=== PATIENT | female | born 1960 | race Caucasian/White ===

== ENCOUNTER 2018-12-08 16:17 | Emergency (ER) | payer MEDICARE, OTHER ==
[2018-12-08 17:11] VITALS: BP 134/74
--- NOTE | 2018-12-08 17:43 | UC ---
General HPI - HPI Summary HPI Summary: PAIN AND SWELLING TO R UPPER OUTER EYE LID X 6 DAYS. WAS ITCHING AND CRUSTY THIS AM. APPLIED VASOLINE WHICH HELPED THE ITCHING. NO CONTACT USE. - History of Current Complaint Chief Complaint: UCEye Stated Complaint: RIGHT EYE CONCERN Time Seen by Provider: 12/08/18 17:20 Hx Obtained From: Patient Onset/Duration: Gradual Onset Timing: Constant Pain Intensity: 5 Associated Signs & Symptoms: Negative: Fever, Headache - Allergy/Home Medications Allergies/Adverse Reactions: Allergies Allergy/AdvReac Type Severity Reaction Status Date / Time amitriptyline Allergy uncontrollable Verified 12/08/18 17:27 legs bee venom protein (honey bee) Allergy Swelling Verified 12/08/18 17:27 carbidopa Allergy See Comment Verified 12/08/18 17:27 epinephrine Allergy Vomiting Verified 12/08/18 17:27 ketorolac Allergy See Comment Verified 12/08/18 17:27 milnacipran [From Savella] Allergy Vomiting Verified 12/08/18 17:27 pregabalin [From Lyrica] Allergy syncope Verified 12/08/18 17:27 Sulfa (Sulfonamide Allergy Edema Verified 12/08/18 17:27 Antibiotics) Tetracyclines Allergy Swelling Verified 12/08/18 17:27 Of Face,Lips,& Throat topiramate [From Topamax] Allergy Anxiety Verified 12/08/18 17:27 tramadol Allergy uncontrollable Verified 12/08/18 17:27 legs trazodone AdvReac See Comment Verified 12/08/18 17:27 prestiq Allergy Abdominal Uncoded 12/08/18 17:27 Pain ANTIHISTAMINE AdvReac See Comment Uncoded 12/08/18 17:27 Home Medications: Home Medications Esomeprazole Magnesium [Heartburn Treatment] 20 mg PO DAILY 12/08/18 [History Confirmed 12/08/18] Methadone TAB* [Dolophine TAB*] 10 mg PO Q6H 12/08/18 [History Confirmed ] PMH/Surg Hx/FS Hx/Imm Hx - Additional Past Medical History Additional PMH: CHRONIC PAIN, ARTHRITIS Endocrine History: Thyroid Disease GI/ History: Gastroesophageal Reflux Psychological History: Anxiety - Surgical History Surgical History: Yes Surgery Procedure, Year, and Place: CERVICAL SURGERIES X4. TONSILS. DEVIATED SEPTUM. CARPAL TUNNEL BILAT. TRIGGER FINGER RELEASE X2 LEFT; RIGHT ALL FINGERS - Family History Known Family History: Positive: Non-Contributory - Social History Alcohol Use: Daily Alcohol Amount: 1/DAY Substance Use Type: None Smoking Status (MU): Current Every Day Smoker When Did the Patient Quit Smoking/Using Tobacco: 8-10/DAY Review of Systems All Other Systems Reviewed And Are Negative: No Constitutional: Positive: Negative Skin: Positive: Negative Eyes: Negative: Blurred Vision, Diplopia, Photophobia ENT: Positive: Negative Respiratory: Positive: Negative Cardiovascular: Positive: Negative Gastrointestinal: Positive: Negative Musculoskeletal: Positive: Arthralgia - CHRONIC Physical Exam Triage Information Reviewed: Yes Appearance: Well-Appearing Vital Signs: Initial Vital Signs Temp 99.0 F 12/08/18 17:04 Pulse 86 12/08/18 17:04 Resp 18 12/08/18 17:04 BP 134/74 12/08/18 17:04 Pulse Ox 100 12/08/18 17:04 Vital Signs Reviewed: Yes Eyes: Positive: Other: - R UPPER OUTER LID WITH MILD SWELLING, ERYTHEMA AND TENDERNESS. LID EVERTED AND NO LESION. PERRL, EOMI. CONJUNCTIVA CLEAR. NO PERIORBITAL EDEMA. NO AURICULAR ADENOPATHY. ENT: Positive: Pharynx normal, TMs normal. Negative: Nasal congestion, Nasal drainage Neck: Positive: Supple Respiratory: Positive: Lungs clear Cardiovascular: Positive: RRR Abdomen Description: Positive: Nontender Bowel Sounds: Positive: Present Neurological: Positive: Alert Psychological: Positive: Age Appropriate Behavior Skin Exam: Normal Skin: Negative: Rashes Course/Dx - Course Course Of Treatment: pt would like an opthamologist also concerned lid may need to be drained thus will give her local opthamologist. - Diagnoses Provider Diagnosis: Sty Discharge - Sign-Out/Discharge Documenting (check all that apply): Patient Departure All imaging exams completed and their final reports reviewed: No Studies - Discharge Plan Condition: Stable Disposition: HOME Prescriptions: Erythromycin OPTH OINT* [Erythromycin 0.5% OPTH OINT*] 1 applic RIGHT EYE TID 7 Days #1 ophth.oint Patient Education Materials: [place] (ED) Referrals: Dilip Carpio MD [Medical Doctor] - Nisa Martin MD [Medical Doctor] - Additional Instructions: FOLLOW UP WITH OPTHAMOLOGY IF NOT BETTER WITHIN 5-7 DAYS OR SOONER IF WORSE. - Billing Disposition and Condition Condition: STABLE Disposition: Home
== END 2018-12-08 17:51 | disposition home or self-care (01) ==
LOC: UCCORT 16:17
DX: H00.011 Hordeolum externum right upper eyelid (principal); K21.9 Gastro-esophageal reflux disease without esophagitis; F17.200 Nicotine dependence, unspecified, uncomplicated; Z88.8 Allergy status to other drugs, medicaments and biological substances; Z88.5 Allergy status to narcotic agent; Z88.2 Allergy status to sulfonamides; Z88.1 Allergy status to other antibiotic agents; Z91.030 Bee allergy status; Z79.899 Other long term (current) drug therapy
CPT/HCPCS: 99212; G0463

== ENCOUNTER 2019-01-12 12:10 | Emergency (ER) | payer MEDICARE, OTHER ==
[2019-01-12 12:44] VITALS: BP 141/83
--- NOTE | 2019-01-12 13:04 | UC ---
Throat Pain/Nasal Shashi HPI - HPI Summary HPI Summary: Patient had cold symptoms approximate 6 weeks ago and since then she has had progressively worsening sinus pressure, head congestion and now green coryza. - History of Current Complaint Chief Complaint: UCGeneralIllness Stated Complaint: SINUSES Time Seen by Provider: 01/12/19 13:04 Hx Obtained From: Patient Hx Last Menstrual Period: ablation Onset/Duration: Gradual Onset Severity: Moderate Pain Intensity: 8 Cough: None Associated Signs & Symptoms: Positive: Sinus Discomfort, Nasal Discharge - Green nasal coryza - Epiglottits Risk Factors Epiglottis Risk Factors: Negative - Allergies/Home Medications Allergies/Adverse Reactions: Allergies Allergy/AdvReac Type Severity Reaction Status Date / Time amitriptyline Allergy uncontrollable Verified 01/12/19 12:28 legs bee venom protein (honey bee) Allergy Swelling Verified 01/12/19 12:28 carbidopa Allergy See Comment Verified 01/12/19 12:28 epinephrine Allergy Vomiting Verified 01/12/19 12:28 ketorolac Allergy See Comment Verified 01/12/19 12:28 milnacipran [From Savella] Allergy Vomiting Verified 01/12/19 12:28 pregabalin [From Lyrica] Allergy syncope Verified 01/12/19 12:28 Sulfa (Sulfonamide Allergy Edema Verified 01/12/19 12:28 Antibiotics) Tetracyclines Allergy Swelling Verified 01/12/19 12:28 Of Face,Lips,& Throat topiramate [From Topamax] Allergy Anxiety Verified 01/12/19 12:28 tramadol Allergy uncontrollable Verified 01/12/19 12:28 legs trazodone AdvReac See Comment Verified 01/12/19 12:28 prestiq Allergy Abdominal Uncoded 01/12/19 12:28 Pain ANTIHISTAMINE AdvReac See Comment Uncoded 01/12/19 12:28 Home Medications: Home Medications Docusate CAP* [Colace Cap*] 100 mg PO BEDTIME PRN 01/12/19 [History Confirmed ] Ibuprofen TAB* [Motrin TAB* 800 MG] 800 mg PO Q6H PRN 01/12/19 [History Confirmed 01/12/19] Polyethylene Glycol 3350* [Miralax*] 17 gm PO DAILY 01/12/19 [History Confirmed 01/12/19] PMH/Surg Hx/FS Hx/Imm Hx Previously Healthy: Yes Endocrine History: Thyroid Disease - Thyroid nodules GI/ History: Gastroesophageal Reflux, Other - Barretts esophagitis Neurological History: Other - Essential tremors right hand - Surgical History Surgical History: Yes Surgery Procedure, Year, and Place: CERVICAL SURGERIES X4. TONSILS. DEVIATED SEPTUM. CARPAL TUNNEL BILAT. TRIGGER FINGER RELEASE X2 LEFT; RIGHT ALL FINGERS. Sty I&D - Family History Known Family History: Positive: Non-Contributory - Social History Alcohol Use: Occasionally Alcohol Amount: 1/DAY Substance Use Type: None Smoking Status (MU): Current Every Day Smoker Type: Cigarettes Amount Used/How Often: "very occassionally" Length of Time of Smoking/Using Tobacco: 20 When Did the Patient Quit Smoking/Using Tobacco: 8-10/DAY Review of Systems All Other Systems Reviewed And Are Negative: Yes ENT: Positive: Nasal Discharge, Sinus Congestion, Sinus Pain/Tenderness - Review nasal coryza Neurological: Positive: Other - Essential tremors right hand for which she sees several neurologists. Is Patient Immunocompromised?: No Physical Exam Triage Information Reviewed: Yes Appearance: Well-Appearing, No Pain Distress, Well-Nourished Vital Signs: Initial Vital Signs Temp 97.9 F 01/12/19 12:36 Pulse 73 01/12/19 12:36 Resp 15 01/12/19 12:36 BP 141/83 01/12/19 12:36 Pulse Ox 98 01/12/19 12:36 Vital Signs Reviewed: Yes Eye Exam: Normal ENT: Positive: Nasal congestion, Nasal drainage, Sinus tenderness, Uvula midline - Yellowish green postnasal drainage and purulent noonish nasal coryza. Neurological: Positive: Other: - Patient has an essential tremor in her right hand Throat Pain/Nasal Course/Dx - Course Course Of Treatment: She has been comfortable here. Her exam is consistent with sinusitis and been treated with amoxicillin 875 mg by mouth twice a day 10 days. Definite follow- up with her primary care provider she still feeling poorly later this week or early next week. Patient is agreeable to this plan of action. - Differential Dx/Diagnosis Provider Diagnosis: Sinusitis Discharge - Sign-Out/Discharge Documenting (check all that apply): Patient Departure All imaging exams completed and their final reports reviewed: No Studies - Discharge Plan Condition: Fair Disposition: HOME Prescriptions: Amoxicillin PO (*) [Amoxicillin 875 MG (*)] 875 mg PO BID 10 Days #20 tab Patient Education Materials: Sinusitis (ED) Referrals: Marlys Powers NP [Primary Care Provider] - Additional Instructions: Increase fluids, continue your present medications. Definite follow-up with your primary care provider if no improvement in 3 or 4 days. - Billing Disposition and Condition Condition: FAIR Disposition: Home - Attestation Statements Provider Attestation: I was available for consult. This patient was seen by the LORA. The patient was not presented to, seen by, or examined by me. -Laura
== END 2019-01-12 13:22 | disposition home or self-care (01) ==
LOC: UCCORT 12:10
DX: J01.90 Acute sinusitis, unspecified (principal); E04.1 Nontoxic single thyroid nodule; K22.70 Barrett's esophagus without dysplasia; G25.2 Other specified forms of tremor; F17.210 Nicotine dependence, cigarettes, uncomplicated; Z88.8 Allergy status to other drugs, medicaments and biological substances; Z88.2 Allergy status to sulfonamides
CPT/HCPCS: 99212; G0463